=== PATIENT | male | born 1950 | race Asian ===

== ENCOUNTER 2019-05-12 04:16 | Inpatient (IN) | payer MEDICARE, MEDICAID ==
[2019-05-11 21:35] VITALS: BP 149/83
[~2019-05-12] VITALS: Ht 167.6 cm; Wt 74.8 kg
[2019-05-12] MEDS ORDERED: SODIUM CHLORIDE 0.9% 1,000 ML IV ONE ×2 (05:01)
[2019-05-12] MEDS ORDERED: MORPHINE SULFATE 4 MG/ML CPJ (NOT FOR IM USE) IV STA (05:01)
[2019-05-12] MEDS ORDERED: ONDANSETRON HCL 4MG/2ML INJ IV STA (05:01)
[2019-05-12 05:21] LABS: BASOPHILS % 0.2 % (0.0-2.0); EOSINOPHILS % 0.2 % (0.0-5.0); HEMATOCRIT. 46.5 % (42.0-52.0); HEMOGLOBIN. 16.1 g/dL (14.0-18.0); LYMPHOCYTES % 8.1 % (20.0-50.0); MEAN CORPUSCULAR HEMOGLOBIN 30.2 pg (28.0-32.0); MEAN CORPUSCULAR VOLUME 87.1 fL (80.0-94.0); MEAN PLATELET VOLUME 7.2 fl (7.4-10.4); MONOCYTES % 8.4 % (2.0-8.0); NEUTROPHILS % 83.1 % (40.0-76.0); PLATELET 100 x1000/uL (130-400); RED BLOOD CELL COUNT 5.33 mill/uL (4.7-6.1); RED CELL DISTRIBUTION WIDTH 12.9 % (11.6-14.6)
[2019-05-12 05:30] LABS: CHLORIDE 107 mEq/L (98-107)
[2019-05-12 08:13] LABS: CLARITY URINE CLEAR (CLEAR); COLOR URINE YELLOW (YELLOW); KETONES URINE NEGATIVE (NEGATIVE); LEUKOCYTE ESTERASE URINE NEGATIVE (NEGATIVE); NITRITE URINE NEGATIVE (NEGATIVE); OCCULT BLOOD URINE NEGATIVE (NEGATIVE); PROTEIN URINE 1+ (NEGATIVE); UROBILINOGEN URINE 0.2 E.U./dL (0.2-1.0)
[2019-05-12] MEDS ORDERED: HYDROCODONE/ACETAMINOPHEN 10/325MG TABLET PO PRN (10:00)
[2019-05-12] MEDS ORDERED: MAGNESIUM/ALUMINUM HYDROXIDE/SIMETHICONE 30ML UDC PO PRN (10:00)
[2019-05-12] MEDS ORDERED: CLONIDINE 0.1MG TABLET PO PRN (10:00)
[2019-05-12] MEDS ORDERED: ONDANSETRON HCL 4MG/2ML INJ IV PRN (10:00)
[2019-05-12] MEDS ORDERED: TEMAZEPAM 15MG CAPSULE PO PRN (10:00)
[2019-05-12] MEDS ORDERED: LACTULOSE 20G/30ML UDC PO PRN (10:00)
[2019-05-12] MEDS ORDERED: MAGNESIUM HYDROXIDE 400MG/5ML 30ML UDC PO PRN (10:00)
[2019-05-12] MEDS ORDERED: BISACODYL 10MG SUPP PR PRN (10:00)
[2019-05-12] MEDS ORDERED: ACETAMINOPHEN 325MG TABLET PO PRN (10:00)
[2019-05-12] MEDS: HYDROCODONE/ACETAMINOPHEN 10/325MG TABLET PO PRN ×4 (10:15→23:28)
[2019-05-12] MEDS: DEXT 5%/0.45% NACL 1000ML 1,000 ML IV SCH ×2 (10:19→23:29)
[2019-05-12 10:57] LABS: *AMPHETAMINES SCREEN URINE NEGATIVE (NEGATIVE); *BARBITURATES SCREEN URINE NEGATIVE (NEGATIVE); *BENZODIAZEPINES SCREEN URINE NEGATIVE (NEGATIVE); *COCAINE SCREEN URINE NEGATIVE (NEGATIVE); METHADONE URINE SCREEN NEGATIVE (NEGATIVE); OPIATES URINE SCREEN PRESUMTIVE POSITIVE (NEGATIVE)
[2019-05-12 10:58] LABS: CANNABINOID URINE SCREEN NEGATIVE (NEGATIVE); PHENCYCLIDINE URINE SCREEN NEGATIVE (NEGATIVE)
[2019-05-12 11:07] LABS: CREATINE KINASE 181 IU/L (39-308)
[2019-05-12] MEDS ORDERED: DEXTROSE 50% WATER 50ML SYRINGE IV PRN (16:15)
[2019-05-12] MEDS: BLOOD SUGAR DIAGNOSTIC STRIP TEST SCH (21:00)
[2019-05-12] MEDS: INSULIN LISPRO 100 UNITS/ML SUBCUT SCH (21:15)
[2019-05-12] MEDS: DOCUSATE SODIUM 100MG CAPSULE PO SCH (23:28)
[2019-05-12] MEDS: FAMOTIDINE 20MG TABLET PO SCH (23:28)
[2019-05-13] VITALS: BP 142/80
[2019-05-13 04:00] VITALS: BP 137/80
[2019-05-13 06:00] LABS: BASOPHILS % 0.2 % (0.0-2.0); EOSINOPHILS % 0.3 % (0.0-5.0); HEMATOCRIT. 46.7 % (42.0-52.0); HEMOGLOBIN. 15.8 g/dL (14.0-18.0); MEAN CORPUSCULAR HEMOGLOBIN 29.4 pg (28.0-32.0); MEAN PLATELET VOLUME 7.3 fl (7.4-10.4); MONOCYTES % 9.1 % (2.0-8.0); NEUTROPHILS % 74.4 % (40.0-76.0); PLATELET 84 x1000/uL (130-400); RED BLOOD CELL COUNT 5.37 mill/uL (4.7-6.1); RED CELL DISTRIBUTION WIDTH 12.6 % (11.6-14.6)
[2019-05-13 06:14] LABS: PHOSPHORUS 3.1 mg/dL (2.5-4.9)
[2019-05-13 06:32] LABS: VITAMIN B12 SERUM 529 pg/mL (211-911)
[2019-05-13] MEDS: BLOOD SUGAR DIAGNOSTIC STRIP TEST SCH ×4 (06:56→21:00)
[2019-05-13 08:00] VITALS: BP 157/90
[2019-05-13] MEDS: HYDROCODONE/ACETAMINOPHEN 10/325MG TABLET PO PRN (08:27)
[2019-05-13] MEDS: INSULIN LISPRO 100 UNITS/ML SUBCUT SCH ×4 (09:30→21:00)
[2019-05-13] MEDS: FAMOTIDINE 20MG TABLET PO SCH (09:34)
[2019-05-13] MEDS: DOCUSATE SODIUM 100MG CAPSULE PO SCH ×2 (09:34→18:44)
[2019-05-13] MEDS ORDERED: HYDROMORPHONE HCL/PF 2MG/ML CPJ IV NR (11:30)
[2019-05-13 12:46] VITALS: BP 134/75
[2019-05-13 16:47] VITALS: BP 135/78
[2019-05-13] MEDS ORDERED: DIPHENHYDRAMINE 50MG/ML VIAL IV PRN (17:45)
[2019-05-13] MEDS: SODIUM CHLORIDE 0.9% 1,000 ML IV SCH (18:45)
[2019-05-13] MEDS: MORPHINE SULFATE 4 MG/ML CPJ (NOT FOR IM USE) IV PRN (19:41)
[2019-05-13 20:00] VITALS: BP 124/80
[2019-05-13] MEDS: METOPROLOL TARTRATE 25MG TABLET PO SCH (21:23)
[2019-05-14 00:05] VITALS: BP 141/84
[2019-05-14] MEDS: OXYCODONE HCL/ACETAMINOPHEN 5/325MG TABLET PO PRN ×3 (00:41→21:12)
[2019-05-14] MEDS: MORPHINE SULFATE 4 MG/ML CPJ (NOT FOR IM USE) IV PRN ×3 (01:40→18:06)
[2019-05-14 04:00] VITALS: BP 124/67
[2019-05-14] MEDS: BLOOD SUGAR DIAGNOSTIC STRIP TEST SCH ×4 (06:04→21:00)
[2019-05-14] MEDS: SODIUM CHLORIDE 0.9% 1,000 ML IV SCH (06:11)
[2019-05-14 06:33] LABS: BASOPHILS % 0.4 % (0.0-2.0); EOSINOPHILS % 0.7 % (0.0-5.0); HEMATOCRIT. 46.7 % (42.0-52.0); LYMPHOCYTES % 10.4 % (20.0-50.0); MEAN CORPUSCULAR HEMOGLOBIN 29.9 pg (28.0-32.0); MEAN CORPUSCULAR VOLUME 87.3 fL (80.0-94.0); MEAN PLATELET VOLUME 7.4 fl (7.4-10.4); MONOCYTES % 10.9 % (2.0-8.0); NEUTROPHILS % 77.6 % (40.0-76.0); PLATELET 88 x1000/uL (130-400); RED BLOOD CELL COUNT 5.36 mill/uL (4.7-6.1)
[2019-05-14 08:00] VITALS: BP 121/72
[2019-05-14] MEDS: METOPROLOL TARTRATE 25MG TABLET PO SCH ×2 (10:09→21:04)
[2019-05-14] MEDS: DOCUSATE SODIUM 100MG CAPSULE PO SCH ×2 (10:09→19:36)
[2019-05-14] MEDS: INSULIN LISPRO 100 UNITS/ML SUBCUT SCH ×4 (10:11→21:00)
[2019-05-14] MEDS: FAMOTIDINE 20MG TABLET PO SCH (10:14)
[2019-05-14 20:00] VITALS: BP 148/73
[2019-05-15 00:08] VITALS: BP 125/75
[2019-05-15 04:00] VITALS: BP 130/78
[2019-05-15] MEDS: MORPHINE SULFATE 4 MG/ML CPJ (NOT FOR IM USE) IV PRN ×2 (04:43→18:22)
[2019-05-15] MEDS: BLOOD SUGAR DIAGNOSTIC STRIP TEST SCH ×4 (05:43→21:55)
[2019-05-15 07:16] LABS: BASOPHILS % 0.2 % (0.0-2.0); EOSINOPHILS % 1.3 % (0.0-5.0); HEMATOCRIT. 47.1 % (42.0-52.0); HEMOGLOBIN. 16.5 g/dL (14.0-18.0); LYMPHOCYTES % 11.9 % (20.0-50.0); MEAN CORPUSCULAR HEMOGLOBIN 30.2 pg (28.0-32.0); MEAN CORPUSCULAR VOLUME 86.3 fL (80.0-94.0); MEAN PLATELET VOLUME 7.4 fl (7.4-10.4); MONOCYTES % 10.8 % (2.0-8.0); NEUTROPHILS % 75.8 % (40.0-76.0); PLATELET 93 x1000/uL (130-400); RED BLOOD CELL COUNT 5.45 mill/uL (4.7-6.1); RED CELL DISTRIBUTION WIDTH 13.1 % (11.6-14.6)
[2019-05-15 08:00] VITALS: BP 132/77
[2019-05-15] MEDS: INSULIN LISPRO 100 UNITS/ML SUBCUT SCH ×4 (08:08→21:00)
[2019-05-15] MEDS: METOPROLOL TARTRATE 25MG TABLET PO SCH ×2 (09:25→22:16)
[2019-05-15] MEDS: DOCUSATE SODIUM 100MG CAPSULE PO SCH ×2 (09:25→17:17)
[2019-05-15] MEDS: FAMOTIDINE 20MG TABLET PO SCH (09:25)
[2019-05-15 12:00] VITALS: BP 141/66
[2019-05-15 16:00] VITALS: BP 130/68
[2019-05-15 20:00] VITALS: BP_SYST 127; BP_SYST 130; BP_DIAS 78; BP_DIAS 79
[2019-05-15] MEDS: LACTULOSE 20G/30ML UDC PO SCH (22:16)
[2019-05-16] VITALS: BP 156/91
[2019-05-16] MEDS: OXYCODONE HCL/ACETAMINOPHEN 5/325MG TABLET PO PRN (00:06)
[2019-05-16 04:00] VITALS: BP 128/77
[2019-05-16] MEDS: LACTULOSE 20G/30ML UDC PO SCH ×4 (05:36→21:12)
[2019-05-16] MEDS: MORPHINE SULFATE 4 MG/ML CPJ (NOT FOR IM USE) IV PRN ×2 (06:28→20:18)
[2019-05-16] MEDS: BLOOD SUGAR DIAGNOSTIC STRIP TEST SCH ×4 (07:43→21:13)
[2019-05-16 08:00] VITALS: BP 130/77
[2019-05-16] MEDS: METOPROLOL TARTRATE 25MG TABLET PO SCH ×2 (08:45→21:13)
[2019-05-16] MEDS: DOCUSATE SODIUM 100MG CAPSULE PO SCH ×2 (08:45→18:03)
[2019-05-16] MEDS: FAMOTIDINE 20MG TABLET PO SCH (08:45)
[2019-05-16] MEDS: INSULIN LISPRO 100 UNITS/ML SUBCUT SCH ×4 (08:47→22:03)
[2019-05-16 12:00] VITALS: BP 131/72
[2019-05-16 15:57] LABS: BASOPHILS % 0.2 % (0.0-2.0); EOSINOPHILS % 0.9 % (0.0-5.0); HEMATOCRIT. 44.9 % (42.0-52.0); HEMOGLOBIN. 15.9 g/dL (14.0-18.0); LYMPHOCYTES % 9.9 % (20.0-50.0); MEAN CORPUSCULAR HEMOGLOBIN 30.5 pg (28.0-32.0); MEAN CORPUSCULAR VOLUME 86.2 fL (80.0-94.0); MEAN PLATELET VOLUME 7.3 fl (7.4-10.4); MONOCYTES % 8.9 % (2.0-8.0); NEUTROPHILS % 80.1 % (40.0-76.0); PLATELET 102 x1000/uL (130-400); RED BLOOD CELL COUNT 5.21 mill/uL (4.7-6.1); RED CELL DISTRIBUTION WIDTH 12.8 % (11.6-14.6)
[2019-05-16 16:00] VITALS: BP 141/75
[2019-05-16] MEDS ORDERED: NA PHOS,M-B/NA PHOS,DI-BA ENEMA 118ML PR SCH (20:00)
[2019-05-16] MEDS: TAMSULOSIN HCL 0.4MG SR CAPSULE PO SCH (21:12)
[2019-05-17] VITALS: BP 115/74
[2019-05-17 04:00] VITALS: BP 119/76
[2019-05-17] MEDS: OXYCODONE HCL/ACETAMINOPHEN 5/325MG TABLET PO PRN ×2 (06:31→17:48)
[2019-05-17] MEDS: LACTULOSE 20G/30ML UDC PO SCH ×2 (06:31→14:00)
[2019-05-17 07:03] LABS: BASOPHILS % 0.3 % (0.0-2.0); EOSINOPHILS % 0.8 % (0.0-5.0); HEMATOCRIT. 45.4 % (42.0-52.0); LYMPHOCYTES % 11.5 % (20.0-50.0); MEAN CORPUSCULAR HEMOGLOBIN 30.2 pg (28.0-32.0); MEAN PLATELET VOLUME 7.2 fl (7.4-10.4); MONOCYTES % 9.5 % (2.0-8.0); NEUTROPHILS % 77.9 % (40.0-76.0); PLATELET 95 x1000/uL (130-400); RED BLOOD CELL COUNT 5.28 mill/uL (4.7-6.1)
[2019-05-17] MEDS: BLOOD SUGAR DIAGNOSTIC STRIP TEST SCH ×4 (07:21→21:00)
[2019-05-17] MEDS: INSULIN LISPRO 100 UNITS/ML SUBCUT SCH ×4 (07:21→22:06)
[2019-05-17 08:00] VITALS: BP 112/69
[2019-05-17] MEDS: TAMSULOSIN HCL 0.4MG SR CAPSULE PO SCH (09:03)
[2019-05-17] MEDS: METOPROLOL TARTRATE 25MG TABLET PO SCH ×2 (09:03→21:57)
[2019-05-17] MEDS: DOCUSATE SODIUM 100MG CAPSULE PO SCH (09:03)
[2019-05-17] MEDS: FAMOTIDINE 20MG TABLET PO SCH (09:03)
[2019-05-17 12:00] VITALS: BP 100/58
[2019-05-17 16:00] VITALS: BP 158/76
[2019-05-17] MEDS ORDERED: HYDROCODONE/ACETAMINOPHEN 10/325MG TABLET PO PRN (19:45)
[2019-05-17] MEDS: NAPROXEN 375MG TABLET PO SCH (21:57)
[2019-05-18 00:36] VITALS: BP 120/60
[2019-05-18 04:00] VITALS: BP 116/71
[2019-05-18] MEDS: BLOOD SUGAR DIAGNOSTIC STRIP TEST SCH ×3 (06:55→13:12)
[2019-05-18 08:00] VITALS: BP 133/68
[2019-05-18] MEDS: INSULIN LISPRO 100 UNITS/ML SUBCUT SCH ×2 (08:38→13:12)
[2019-05-18] MEDS: MORPHINE SULFATE 4 MG/ML CPJ (NOT FOR IM USE) IV PRN (08:50)
[2019-05-18] MEDS: TAMSULOSIN HCL 0.4MG SR CAPSULE PO SCH (09:46)
[2019-05-18] MEDS: FAMOTIDINE 20MG TABLET PO SCH (09:46)
[2019-05-18] MEDS: METOPROLOL TARTRATE 25MG TABLET PO SCH (09:46)
[2019-05-18] MEDS: NAPROXEN 375MG TABLET PO SCH (09:46)
[2019-05-18 12:00] VITALS: BP 110/75
[2019-05-18 16:00] VITALS: BP 125/68
[2019-05-18 16:23] VITALS: BP 125/68
== END 2019-05-18 17:35 | disposition home health service (06) | DRG 183 ==
LOC: ER 04:16 → 7WST 07:25 → EDBEDREQ 07:45 → EDBEDREQTM 07:45 → ENRESERV 20:34
PROVIDERS: ADMIT Internal Medicine; ATTEND Internal Medicine
DX: S22.41XA Multiple fractures of ribs, right side, initial encounter for closed fracture (principal); G93.41 Metabolic encephalopathy; N17.9 Acute kidney failure, unspecified; E46 Unspecified protein-calorie malnutrition; G90.8 Other disorders of autonomic nervous system; D69.6 Thrombocytopenia, unspecified; N40.0 Benign prostatic hyperplasia without lower urinary tract symptoms; I25.10 Atherosclerotic heart disease of native coronary artery without angina pectoris; I12.9 Hypertensive chronic kidney disease with stage 1 through stage 4 chronic kidney disease, or unspecified chronic kidney disease; E11.22 Type 2 diabetes mellitus with diabetic chronic kidney disease; N18.9 Chronic kidney disease, unspecified; E11.65 Type 2 diabetes mellitus with hyperglycemia; R26.9 Unspecified abnormalities of gait and mobility; E61.1 Iron deficiency; H54.62 Unqualified visual loss, left eye, normal vision right eye; N40.1 Benign prostatic hyperplasia with lower urinary tract symptoms; R33.8 Other retention of urine; W18.39XA Other fall on same level, initial encounter; Z90.5 Acquired absence of kidney; Z87.891 Personal history of nicotine dependence; Z85.528 Personal history of other malignant neoplasm of kidney; Z85.05 Personal history of malignant neoplasm of liver; Z79.4 Long term (current) use of insulin; Y93.89 Activity, other specified; Y92.89 Other specified places as the place of occurrence of the external cause; Y99.8 Other external cause status; Z68.26 Body mass index [BMI] 26.0-26.9, adult
CPT/HCPCS: 36415; 71045; 71250; 72128; 74176; 80048; 80053; 80061; 80076; 80305; 81003; 82550; 82607; 82962; 83036; 83540; 83550; 83735; 84100; 84443; 84484; 85025; 86850; 86900; 93005; 93306; 93880; 93970; 97161; 97166; 99285; J1170; J1815; J2270; J2405; J7030